=== PATIENT | female | born 1995 | race Caucasian/White ===

== ENCOUNTER 2017-01-07 17:56 | Emergency (ER) | payer OTHER ==
[2017-01-07 17:24] LABS: URINE SOURCE CLEAN CATCH
[2017-01-07 17:27] LABS: BASOPHIL% 0.6 % (0-2.5); EOSINOPHIL# 0.2 X10e3 (0-0.7); EOSINOPHIL% 2.1 % (0.0-7.0); HEMATOCRIT 45.2 % (35.0-45.0); HEMOGLOBIN 14.8 gm/dL (12.0-16.0); LYMPHOCYTE# 2.1 X10e3 (1.0-3.5); LYMPHOCYTE% 27.2 % (17.0-45.0); MEAN CELL VOLUME 86.7 FL (83-96); MEAN CORPUSCULAR HEMOGLOBIN 28.4 PG (28-34); MEAN CORPUSCULAR HGB CONC 32.7 g/dL (30-36); MONOCYTE# 0.6 X10e3 (0-1.0); MONOCYTE% 7.3 % (3.0-12.0); NEUTROPHIL# 4.9 X10e3 (1.5-7.1); NEUTROPHIL% 62.8 % (40-75); PLATELET COUNT 236 X10e3 (140-420); RED BLOOD COUNT 5.22 X10e (3.90-5.30); RED CELL DISTRIBUTION WIDTH 16.3 % (11.0-15.5); WHITE BLOOD COUNT 7.8 X10e3 (4.0-10.5)
[2017-01-07 17:28] LABS: URINE APPEARANCE CLEAR; URINE BILIRUBIN NEG (NEG); URINE BLOOD NEG (NEG); URINE COLOR YELLOW; URINE GLUCOSE NEG (NORM); URINE KETONE NEG (NEG); URINE LEUKOCYTE ESTERASE 1+ (NEG); URINE NITRATE NEG (NEG); URINE PROTEIN NEG (NEG)
[2017-01-07 17:30] LABS: DIFF IND NO
[2017-01-07 17:31] LABS: MICRO INDICATED? YES
[2017-01-07 17:37] LABS: CULTURE INDICATED? YES; URINE BACTERIA 3+ (NEG); URINE RBC 0-2 /[HPF] (0-2); URINE SQUAMOUS EPITHELIAL CELL MODERATE /[HPF]
[2017-01-07 17:50] LABS: ALBUMIN SERUM 4.2 g/dL (3.5-5.0); BILIRUBIN,TOTAL 0.8 mg/dL (0.2-2.0); CALCIUM SERUM 9.4 mg/dL (8.4-10.2); CREATININE SERUM 0.6 mg/dL (0.6-1.4); GLOM FILT RATE Estimated 130.3 mL/min (>60); PROTEIN TOTAL SERUM 7.3 g/dL (6.0-8.3)
[~2017-01-07 17:56] MED LIST: ALBUTEROL17 G1 IH; ALBUTEROL17 GM INH; AMOXIL500 M1 PO; BACTRIM DS TABL1 TA1 PO; BACTRIM DS TABL1 TA2 PO; BACTROBAN22 GM TOP; BENADRYL PO; BENZONATATE PO; BIRTH CONTROL PILL PO; CIPRO PO; FLEXERIL10 M1 PO; IBUPROFEN800 MG PO; KEFLEX500 M1 PO; KEFLEX500 MG PO; LOMOTIL WHITE2.5 M1 PO; MACROBID100 MG PO; MAGIC MOUTHWASH PO; MELATONIN1 M1; MICROGESTIN1 TA1; MOTRIN600 MG PO; MUSCLE RELAXANT; NAPROSYN500 MG PO; NAPROXEN PO; NO MEDICATIONS; PHENERGAN DM1 ML PO; PREDNISONE PO; PRENATAL TABLE1 EAC1; PRENATAL1 TA1 PO; PRILOSEC PO; PYRIDIUM PO; PYRIDIUM100 MG PO; ROBAXIN500 MG PO; ULTRAM PO; VIBRAMYCIN100 M1 PO; ZOFRAN ODT4 MG PO; ZOFRAN ODT4 MG SL; [UNRECOGNIZED DRUG - OTHER]
[2017-04-20] MEDS ORDERED: NITROFURANTOIN100 M4 PO (14:59)
[2017-04-20] MEDS ORDERED: VITAMIN D2 PO (15:00)
[2017-04-20] MEDS ORDERED: SERTRALINE HCL25 M1 PO (15:01)
[2017-04-20] MEDS ORDERED: ONDANSETRON HCL4 M1 PO (15:02)
== END 2017-01-07 18:34 | disposition home or self-care (01) ==
LOC: SED 17:56
PROVIDERS: Nurse Practitioner Family
DX: N39.0 Urinary tract infection, site not specified (principal); K21.9 Gastro-esophageal reflux disease without esophagitis; J45.909 Unspecified asthma, uncomplicated; F17.210 Nicotine dependence, cigarettes, uncomplicated; Z79.899 Other long term (current) drug therapy
CPT/HCPCS: 36415; 80053; 81003; 83690; 84703; 85025; 87086; 87088; 87186; 99284

== ENCOUNTER 2017-03-21 18:58 | Emergency (ER) | payer OTHER ==
--- NOTE | ~2017-03-21 | CT2 ---
[facility] A Service of [facility] RADIOLOGY TEXT RESULTS PATIENT: VILMA MORALES LOCATION: SED : 95 UNIT #: [id number] AGE: [address]: SRIRAM LEE SEX: F ORDER DR: [id number] [address] [address] [id number] E MR#: [id number] Acc #: [id number] NAME: VILMA MORALES. : 1995 SEX: F STUDY DATE/TIME: 03/21/2017 20:17 UNIT: SED ROOM: STUDY DESCRIPTION: CT Abd and Pelv W Cont Attending Physician: Sriram Lee Aprn Ordering Physician: Sriram Lee Aprn Primary Care Physician: No Primary Care Physician MEDICAL IMAGING REPORT This report is preliminary unless electronic signature is present. EXAM CT abdomen and pelvis. INDICATION Nausea and vomiting. Two hours of abdominal pain. Generalized abdominal pain. TECHNIQUE CT abdomen and pelvis with p.o. and IV contrast (100 mL Isovue-370 IV contrast). Coronal and sagittal reconstructions were obtained. This CT exam was performed with one or more of the following radiation dose reduction techniques: automatic exposure control, adjustment of mA and/or kV according to patient size, and iterative reconstruction. COMPARISON CT abdomen and pelvis, 01/15/2014. FINDINGS ABDOMEN: The liver, pancreas, spleen, and adrenal glands are within normal limits. The kidneys enhance symmetrically. No hydronephrosis. There are some peripherally calcified gallstones in the gallbladder. No gallbladder distension. The bowel is not dilated. The appendix is normal. The abdominal aorta is normal in caliber. PELVIS: The ovaries are within normal limits. There are 2 uterine fibroids, the largest is partially exophytic off the lower uterine segment measuring 3 cm. There is an intramural fibroid measuring 1.7 cm at the fundus. Bladder is unremarkable. No enlarged pelvic or inguinal lymph nodes. No acute osseous abnormalities. [facility] A Service [facility] RADIOLOGY TEXT RESULTS PATIENT: VILMA MORALES LOCATION: SED : 95 UNIT #: [id number] AGE: [address]: SRIRAM LEE SEX: F ORDER DR: IMPRESSION 1. No acute findings in the abdomen and pelvis to account for the patient's symptoms. 2. Cholelithiasis. 3. Two uterine fibroids. Dictated by... Adis De La Fuente M.D. THIS IS AN ELECTRONICALLY VERIFIED REPORT Adis De La Fuente M.D. at 03/22/2017 3:07 PM DERRICK/robert TD: 03/22/2017 11:59 JOB #: [id number] MEDICAL IMAGING REPORT Page 1 of 1
[2017-03-21 19:43] LABS: BASOPHIL% 0.4 % (0-2.5); EOSINOPHIL# 0.3 X10e3 (0-0.7); EOSINOPHIL% 3.6 % (0.0-7.0); HEMATOCRIT 43.4 % (35.0-45.0); HEMOGLOBIN 14.5 gm/dL (12.0-16.0); LYMPHOCYTE# 3.1 X10e3 (1.0-3.5); LYMPHOCYTE% 37.4 % (17.0-45.0); MEAN CELL VOLUME 88.2 FL (83-96); MEAN CORPUSCULAR HEMOGLOBIN 29.4 PG (28-34); MEAN CORPUSCULAR HGB CONC 33.3 g/dL (30-36); MEAN PLATELET VOLUME 8.2 FL (6.5-11.5); MONOCYTE# 0.5 X10e3 (0-1.0); MONOCYTE% 6.3 % (3.0-12.0); NEUTROPHIL# 4.3 X10e3 (1.5-7.1); NEUTROPHIL% 52.3 % (40-75); PLATELET COUNT 282 X10e3 (140-420); RED BLOOD COUNT 4.93 X10e (3.90-5.30); RED CELL DISTRIBUTION WIDTH 15.7 % (11.0-15.5); WHITE BLOOD COUNT 8.2 X10e3 (4.0-10.5)
[2017-03-21 19:45] LABS: DIFF IND NO
[2017-03-21 19:51] LABS: URINE SOURCE CLEAN CATCH
[2017-03-21 19:53] LABS: URINE APPEARANCE HAZY; URINE BILIRUBIN NEG (NEG); URINE BLOOD 3+ (NEG); URINE COLOR YELLOW; URINE GLUCOSE NEG (NORM); URINE KETONE NEG (NEG); URINE LEUKOCYTE ESTERASE 1+ (NEG); URINE NITRATE POS (NEG); URINE PH 6.5 (5-8); URINE PROTEIN NEG (NEG); URINE UROBILINOGEN 0.2 MG/DL (NORM)
[2017-03-21 19:54] LABS: MICRO INDICATED? YES
[2017-03-21 19:54] LABS: ALBUMIN SERUM 4.1 g/dL (3.5-5.0); BILIRUBIN, DIRECT 0.1 mg/dL (0.0-0.2); BILIRUBIN,INDIRECT 0.7 mg/dL (0.0-0.9); BILIRUBIN,TOTAL 0.8 mg/dL (0.2-2.0); BUN/CREATININE RATIO 12.85; CREATININE SERUM 0.7 mg/dL (0.6-1.4); POTASSIUM 3.3 mmol/L (3.5-5.1); PROTEIN TOTAL SERUM 6.9 g/dL (6.0-8.3)
[2017-03-21 19:56] LABS: CULTURE INDICATED? YES; URINE BACTERIA 2+ (NEG); URINE SQUAMOUS EPITHELIAL CELL OCCAS /[HPF]; URINE WBC 0-2 /[HPF] (0-5)
[2017-04-20] MEDS ORDERED: NITROFURANTOIN100 M4 PO (14:59)
[2017-04-20] MEDS ORDERED: VITAMIN D2 PO (15:00)
[2017-04-20] MEDS ORDERED: SERTRALINE HCL25 M1 PO (15:01)
[2017-04-20] MEDS ORDERED: ONDANSETRON HCL4 M1 PO (15:02)
== END 2017-03-21 21:54 | disposition home or self-care (01) ==
LOC: SED 18:58
PROVIDERS: Nurse Practitioner Family
DX: R10.84 Generalized abdominal pain (principal); R11.2 Nausea with vomiting, unspecified; K21.9 Gastro-esophageal reflux disease without esophagitis; J45.909 Unspecified asthma, uncomplicated; F17.210 Nicotine dependence, cigarettes, uncomplicated
CPT/HCPCS: 36415; 74177; 80048; 80076; 81003; 82150; 83690; 84703; 85025; 87086; 87088; 87186; 96361; 96374; 96375; 99284; J2405; Q9967

== ENCOUNTER → 2017-04-29 | Day surgery (SDC) | payer OTHER ==
[~2017-04-29] MED LIST changes: +NITROFURANTOIN100 M4 PO; +ONDANSETRON HCL4 M1 PO; +SERTRALINE HCL25 M1 PO; +VITAMIN D2 PO
--- NOTE | ~2017-04-29 | OR ---
Unit #: [id number] #: [id number] Patient: VILMA MORALES [id number] [address] [address] [id number] O MR#: [id number] NAME: VILMA MORALES ROOM: Date of Procedure: 04/29/2017 Admission Date: 04/29/2017 Surgeon: Mohsen Leung Jr., M.D. : 1995 Attending Physician: Mohsen Leung Jr., M.D. OPERATIVE REPORT INDICATION FOR PROCEDURE The patient is a 22-year-old white female, who has been having intermittent mid epigastric and right upper quadrant abdominal pain. She has been worked up and noted to have evidence of gallstones. It was felt she is having repeated biliary colic symptoms. She is brought in this time for laparoscopic cholecystectomy. She understands the procedure including the risks, including that of common duct injury, biliary leak, and bleeding, and intra-abdominal organ injury, and consents. PREOPERATIVE DIAGNOSES Chronic cholecystitis with cholelithiasis. POSTOPERATIVE DIAGNOSES Chronic cholecystitis with cholelithiasis. ANESTHESIA General with endotracheal intubation. PROCEDURE PERFORMED Laparoscopic cholecystectomy. DESCRIPTION OF PROCEDURE The patient was positioned in supine position. After being anesthetized and intubated, she was prepped and draped in routine fashion for laparoscopic cholecystectomy. A small infraumbilical incision was made approximately a 1 cm in length. This was carried down to the fascia. The fascia was lifted between 2 Thad clamps and Veress needle introduced in the abdomen. The abdomen was then inflated with CO2 gas. A 5-mm port was introduced in the abdomen followed by the camera. There was no evidence of any injury related to introduction of the port of the Veress needle. Brief intra-abdominal exploration was carried out. The patient noted to have some small fibroids on her uterus as well as some retroperitoneal area and the falciform area. There was no evidence of any other abnormalities except for a globular liver. A chronic inflamed gallbladder. Two 5-mm ports were placed laterally and an 11-mm port just to the right of the upper midline. The gallbladder was lifted. Several adhesions were dissected free with hook scissors and dissection was then carried out on the triangle of Calot, cystic duct which was small 1 to 2 mm in diameter was isolated and hemoclipped x4 and divided. This was approximately a 1 cm from its junction with the common duct. The common duct appeared normal. Cystic artery was identified, hemoclipped x3, and divided. There was an additional small posterior branch, which was also Unit #: [id number] #: [id number] Patient: VILMA MORALES hemoclipped and divided. The gallbladder was then removed from its bed with the hook cautery using a current of 20 and after it was released, it was removed through the upper midline incision along with the grasping clamp and the port. The port was replaced. Subhepatic space checked. There was a small amount of oozing in the gallbladder bed itself, which was controlled with the hook cautery using a current of 20. The clips on cystic duct and cystic artery with its branch posteriorly were all intact with no evidence of any leak or bleeding. At this point, a small amount of bile was removed using the sponge packed within the abdomen and brought out directly and once the area was clear and total hemostasis was again noted, the fascia in the larger port site was approximated with the neoClose technique. The wounds were irrigated. The ports removed. CO2 was expressed from the abdomen. The port sites were injected with 0.5% Marcaine with epinephrine and the wounds were irrigated again and after hemostasis achieved with the Bovie cautery, skin edges were approximated with stainless-steel skin clips and skin stapling device. Sterile dressings were applied externally. Estimated blood loss less than 50 mL. The patient received less than 1500 mL crystalloid solution during the procedure. Sponges and instrument counts were correct x3. No drains used. No complications. The patient was taken to the recovery room with stable vital signs in satisfactory condition. Dictated by... Mohsen Leung Jr., M.D. JMB/hunter TD: 04/29/2017 14:16 JOB #: [id number] CC: Johnson Rick M.D. OPERATIVE REPORT Page 1 of 1 X Mohsen Leung MD X PROCEDURE OPERATIVE NOTE
[2017-04-29 08:10] LABS: URINE APPEARANCE CLOUDY; URINE BILIRUBIN NEG (NEG); URINE BLOOD 1+ (NEG); URINE COLOR YELLOW; URINE GLUCOSE NEG (NEG); URINE KETONE NEG (NEG); URINE LEUKOCYTE ESTERASE 3+ (NEG); URINE NITRATE NEG (NEG); URINE PROTEIN NEG (NEG); URINE SPECIFIC GRAVITY 1.014 (1.003-1.035)
[2017-04-29 08:13] LABS: URINE BACTERIA AUWI 2+ (NEGATIVE); URINE SQUAMOUS EPITHELIAL CELL OCC /[HPF]; UWBCS1 AUWI 25-50 (0-5)
== END | disposition home or self-care (01) ==
LOC: CSUR 07:21
PROVIDERS: Surgery
DX: K80.10 Calculus of gallbladder with chronic cholecystitis without obstruction (principal); E66.9 Obesity, unspecified; K21.9 Gastro-esophageal reflux disease without esophagitis; F17.210 Nicotine dependence, cigarettes, uncomplicated; Z68.33 Body mass index [BMI] 33.0-33.9, adult; Z87.09 Personal history of other diseases of the respiratory system; Z87.440 Personal history of urinary (tract) infections; Z82.5 Family history of asthma and other chronic lower respiratory diseases; Z82.49 Family history of ischemic heart disease and other diseases of the circulatory system; Z82.62 Family history of osteoporosis; Z83.3 Family history of diabetes mellitus; Z79.899 Other long term (current) drug therapy
CPT/HCPCS: 81003; 84703; 88304; J0131; J0330; J0690; J1100; J1170; J1885; J2250; J2270; J2405; J2710; J3010